=== PATIENT | female | born 1955 | race Caucasian/White ===

== ENCOUNTER → 2016-10-26 | Outpatient (CLI) | payer BC | END | disposition home or self-care (01) | LOC: C.PAPS 15:51 | PROVIDERS: ATTEND Obstetrics & Gynecology | DX: Z01.419 Encounter for gynecological examination (general) (routine) without abnormal findings (principal) ==

== ENCOUNTER → 2018-01-16 | Outpatient (CLI) | payer BC ==
--- NOTE | 2018-01-20 15:15 | POLYSOMNOGRAPH REPORT ---
CLINICAL DATA: A 62-year-old female with a BMI of 29.17 referred by Lynn Meraz and myself for evaluation of severe unrefreshing sleep her entire life that requires daily naps, frequent awakenings at night, and progressively worsening snoring. On the evening of 01/16/2018, a home sleep apnea test was performed using a [employer] type 3 monitor. RECORDING RESULTS: Total recording time was 10 hours. The patient's monitoring time and estimated sleep time was 7.8 hours. RESPIRATORY DATA: Mild sleep apnea was documented. The BOY was 7.1. There were 4 obstructive, 2 mixed, and 10 central apneic episodes. There were 40 hypopneic episodes. The longest respiratory event was 32 seconds. OXIMETRY DATA: Nocturnal hypoxemia was seen. Oxygen felix was 79%. Mean saturation was 91%. Time below 89% was 37 minutes. HEART RATE DATA: Heart rates ranged from 48-57 beats per minute. SNORING DATA: Snoring was recorded throughout the night. IMPRESSION: Mild sleep apnea/hypopnea with an BOY of 7.1. RECOMMENDATIONS: The patient may benefit from use of an oral appliance, repeat sleep study with CPAP, or use of auto CPAP. Clinical correlation is needed. NEEMA
== END | disposition home or self-care (01) ==
LOC: C.NEUR 08:28
PROVIDERS: ATTEND Physician Assistant Medical
DX: G47.33 Obstructive sleep apnea (adult) (pediatric) (principal); R40.0 Somnolence; R06.83 Snoring; K21.9 Gastro-esophageal reflux disease without esophagitis

== ENCOUNTER → 2018-01-24 | Outpatient (CLI) | payer BC ==
[~2018-01-24] VITALS: Ht 165.1 cm; Wt 78.9 kg
[2018-01-24 13:24] VITALS: BP 126/74; PULSE 72; Ht 165.1 cm; Wt 78.9 kg
== END | disposition home or self-care (01) ==
LOC: C.NEUR 12:59
PROVIDERS: ATTEND Internal Medicine Pulmonary Disease
DX: G47.33 Obstructive sleep apnea (adult) (pediatric) (principal); R40.0 Somnolence